=== PATIENT | male | born 1970 | race Caucasian/White ===

== ENCOUNTER → 2022-12-04 | Outpatient (CLI) | payer OTHER, SELFPAY ==
[2022-12-04 17:40] LABS: Absolute Lymphocyte Count 1.89 X10^3/uL (0.83-4.51); Absolute Neutrophil Count 2.9 X10^3/uL (2.0-7.7); Basophil# 0.06 X10^3/uL; Basophil% 1.1 % (0-1); Eosinophil# 0.17 X10^3/uL; Hematocrit 45.1 % (40-54); Hemoglobin 14.7 g/dL (13.0-16.5); Lymphocyte # 1.89 X10^3/ul (0.83-4.51); Lymphocyte % 33.8 % (19-41); Mean Corp Hgb Conc 32.6 g/dL (32-36); Mean Corpuscular Hgb 30.4 pg (27.0-32.0); Mean Corpuscular Volume 93.4 fL (80-94); Mean Platelet Vol. 11.6 fl (6.2-12.0); Monocyte% 10.7 % (0-10); NRBC Flagged by Analyzer 0 % (0-5); Neutrophil # 2.85 X10^3/uL (2.7-7.7); Platelet Count 256 K/mm3 (150-450); RBC Distribution Width CV 13.2 % (11.6-14.6); RBC Distribution Width SD 45.1 fl (35.1-43.9); Red Blood Count 4.83 M/mm3 (4.6-6.2); White Blood Count 5.6 K/mm3 (4.4-11.0)
[2022-12-04 18:01] LABS: BUN 14 mg/dL (7-18); Creatinine, Serum 1.15 mg/dL (0.70-1.30); EST Glomerular Filtration Rate 71 mL/min (>60); Est Glom Filt Rate - Afr Amer 86 mL/min (>60); Glucose 99 mg/dL (74-106)
[2022-12-04 18:02] LABS: ALB/GLOB Ratio 1.2 RATIO (0.9-2.4); AST(SGOT) 50 U/L (15-37); Alanine Aminotransfer ALT/SGPT 61 U/L (16-61); Albumin, Serum 4.1 g/dL (3.2-5.0); Alkaline Phosphatase 28 U/L (45-117); Anion Gap 4 (5-15); BUN/Creat Ratio 12.2 RATIO (10-20); Calcium,Total 9.2 mg/dL (8.5-10.1); Chloride 106 mmol/L (98-107); Globulin 3.5 g/dL (2.2-4.2); Potassium 3.8 mmol/L (3.5-5.1); Protein, Total 7.6 g/dL (6.4-8.2); Sodium Level 137 mmol/L (136-145)
== END | disposition home or self-care (01) ==
PROVIDERS: PCP Family Medicine; Visit Provider Family Medicine
DX: Z01.818 Encounter for other preprocedural examination (principal)
CPT/HCPCS: 36415; 80053; 85025

== ENCOUNTER 2022-12-15 11:26 | Day surgery (SDC) | payer OTHER, SELFPAY ==
[2022-12-15] VITALS (7 sets, daily range): BP systolic 110–157; BP diastolic 84–96; PULSE 71–86; RESP 16–18; TEMP 36.1–36.8; O2SAT 93–100; BMI 35.4
[2022-12-15] MEDS: Lactated Ringers 1,000 ML 15 ML IV (12:07)
--- NOTE | 2022-12-15 13:00 | RAD_ITS ---
INDICATION: FOOT ORIF FROM LISFRANC INJURY EXAMINATION/TECHNIQUE: X-RAY - RIGHT XR Foot Min 3 Views 10 VIEWS COMPARISON: None. FINDINGS: 10 fluoroscopic intraoperative spot films obtained during ORIF right foot following Lisfranc injury. Please refer to operative notes for details. Total fluoroscopic time 1 minute 55 seconds . RAD/Foot min 3 Views IMPRESSION: ORIF right foot. Electronically Signed: Raúl Rosas MD at 15:16 EDT ,
[2022-12-15] MEDS: Cefazolin 2 GM in 0.9% Normal Saline 100 ML IV (13:13)
[2022-12-15] MEDS: Bacitracin 500 UNITS/GM PACKET (14:24)
[2022-12-15] MEDS: Bupivacaine 0.25% 30 ML Vial (14:28)
--- NOTE | 2022-12-15 14:44 | OP.PCM_ITS ---
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 Patient had dorsal midfoot swelling with miguelina diastases between the medial cuneiform second metatarsal on radiographs. MRI was ordered and demonstrated complete rupture of the Lisfranc ligament. Due to instability decision for open reduction internal fixation to stabilize the ligament and the midfoot was made. Patient was brought back to the operating placed comfortably in supine position on the operating room table. Patient induced under general anesthesia. Right lower extremity was bumped back on a external rotation. Well-padded right ankle tourniquet was applied. Preoperatively 10 cc was used to perform a ring ankle block of 0.25% Marcaine plain. Right lower extremity scrubbed prepped draped in typical aseptic fashion. Using fluoroscopic guidance the first and second tarsometatarsal joints were marked out as well as the course of the Lisfranc ligament. Right lower extremity was elevated exsanguinated tourniquet was inflated to 250 mmHg. The second metatarsal base lateral cortex was marked out and a linear incision was made dorsally approximately 2 to 3 cm in length across the second metatarsal tarsometatarsal joint on the lateral aspect. This was made with a 15 blade through epidermis dermis into subcutaneous tissue blunt dissection was taken down the level of the second metatarsal periosteum over the second metatarsal base was identified any neurovascular bundle was retracted medially in this case and protected with blunt retraction at this time using fluoroscopic guidance and clinical examination a [id number] reduction forcep was placed along the course the Lisfranc ligament reducing the diastases between the medial cuneiform and second metatarsal confirmed fluoroscopically. Next a tight rope was placed from lateral to medial from the base of the second metatarsal into the medial cuneiform over a guidewire using [employer] guideline technique. It was Endo suture button was placed along the lateral cortex and fed through a bone tunnel which was drilled along the course of the Lisfranc ligament into the medial cuneiform and anchored using a transfixion screw along within the medial cuneiform. Fiber tape residual ends were excised. Should be noted that incision was made medially through the epidermis dermis into subcutaneous tissue blunt dissection was taken down to allow for exposure of the bone tunnel and easy examination where the anchor went. Tourniquet was let down any bleeders were identified cauterized at this time. Incisional sites flushed with copious amounts normal sterile saline. Fluoroscopic images were taken to identify reduction of the Lisfranc joint with AP MO and lateral images. Additional 20 cc 0.25% Marcaine plain were injected using ring ankle block technique. Total tourniquet time was noted to be 41 minutes. Incision was flushed and closed using deep and subcutaneous 3-0 Vicryl buried interrupted technique. Skin closure performed with horizontal mattress using 3-0 nylon to both the medial and lateral incision. Foot was cleansed and dressed with bacitracin Adaptic 4 x 4's Kerlix Renard bandage and a well-padded posterior splint. Patient was transferred to PACU vital signs stable vascular status intact all digits for further monitoring prior to discharge. Patient tolerated procedure and anesthesia well in apparent satisfactory condition. Surgeon: Nicolás Manjarrez setter molding and coremaking machines: None (bekah brooks) Type of Anesthesia: General Special Medications: 30cc marcaine 0.25% plain Specimen's removed: none Drains: none Estimated Blood Loss (mL): minimal Complications none Admit VTE Documentation VTE Present on Admission: Yes VTE Mechan Device Prophylaxis: SCD's VTE Pharm Prophylaxis ordered?: Yes
== END 2022-12-15 16:26 | disposition home or self-care (01) ==
LOC: SDC 11:28 → AC 11:32
PROVIDERS: PCP Family Medicine; Referring Provider Podiatrist; Visit Provider Podiatrist
PROC: (CPT 28615; principal; 2022-12-15 12:40)
DX: S93.324A Dislocation of tarsometatarsal joint of right foot, initial encounter (principal); X58.XXXA Exposure to other specified factors, initial encounter; I10 Essential (primary) hypertension; G62.9 Polyneuropathy, unspecified; Z79.899 Other long term (current) drug therapy; Z90.49 Acquired absence of other specified parts of digestive tract
CPT/HCPCS: 28615; 01480; 73630; 76000; C1713; J7120; J2405

== ENCOUNTER → 2024-12-03 | Outpatient (CLI) | payer OTHER, SELFPAY | END | disposition home or self-care (01) | PROVIDERS: PCP Family Medicine; Referring Provider Otolaryngology Otolaryngology/Facial Plastic Surgery; Visit Provider Otolaryngology Otolaryngology/Facial Plastic Surgery | DX: J32.9 Chronic sinusitis, unspecified (principal) | CPT/HCPCS: 87070; 87186; 87205 ==